=== PATIENT | male | born 1960 ===

== ENCOUNTER 2020-06-07 04:43 | Emergency (ER) | payer OTHER ==
[~2020-06-07] VITALS: Ht 157.5 cm; Wt 75.4 kg
--- NOTE | 2020-06-07 05:00 | NUR ---
nil x1
--- NOTE | 2020-06-07 06:18 | NUR ---
Pt to ER, acting paranoid, difficulty to get patient to answer questions appropraitly. Pt does speak clearly, just irrationaly. Pt follows commands, able to get on the bed and attach to monitor, Pt c/o chest pain, but unable to get more information about his cp. Pt c/o bilat feet pain. Pt with twitching/ticking motion, to right side. Pt p/w/d. warm blankets given. will monitor.
[2020-06-07] MEDS ORDERED: LORazepam 1MG TABLET PO ONE (06:30)
[2020-06-07] MEDS ORDERED: LORazepam 1MG TABLET ONE (06:40)
[2020-06-07 06:47] LABS: BASOPHILS % (AUTO) 1 % (0-1); EOSINOPHILS % (AUTO) 3 % (1-7); LYMPHOCYTES % (AUTO) 19 % (22-44); MEAN CORPUSCULAR HEMOGLOBIN 29.4 pg (27.5-34.5); MEAN CORPUSCULAR HGB CONC 33.1 g/dL (33.2-36.2); MEAN PLATELET VOLUME 8.4 fL (7.4-10.4); MONOCYTES % (AUTO) 8 % (2-9); NEUTROPHILS % (AUTO) 69 % (42-75); PLATELET COUNT 552 x10^3/uL (130-400); RED BLOOD COUNT 5.26 x10^6/uL (4.38-5.82); RED CELL DISTRIBUTION WIDTH 14.7 % (9.4-14.8)
[2020-06-07 06:55] LABS: ALANINE AMINOTRANSFERASE 70 U/L (12-78); ANION GAP 7 mmol/L (5-15); CALCIUM 8.9 mg/dL (8.5-10.1); CHLORIDE 103 mmol/L (98-107); CREATININE 1.23 mg/dL (0.7-1.3)
[2020-06-07 06:57] LABS: ALKALINE PHOSPHATASE 84 U/L (45-117); BILIRUBIN,TOTAL 0.6 mg/dL (0.2-1.0); TOTAL PROTEIN 9.3 g/dL (6.4-8.2)
[2020-06-07 07:58] LABS: MD SCAN
--- NOTE | 2020-06-07 08:46 | NUR ---
This RN to bedside to d/c pt. Pt says "I need something for my scrotum." Pt educated that he is up for d/c, pt states "no." Pt moved out of bed aggressively, security called.
[2020-06-07 08:48] VITALS: BP 152/110
== END 2020-06-07 09:00 | disposition home or self-care (01) ==
LOC: ED 08:50
DX: F19.10 Other psychoactive substance abuse, uncomplicated (principal); R45.1 Restlessness and agitation; R25.3 Fasciculation; M79.10 Myalgia, unspecified site; M79.671 Pain in right foot; M79.672 Pain in left foot
CPT/HCPCS: 36415; 80053; 85025; 99283